=== PATIENT | male | born 1990 | race African-American/Black ===

== ENCOUNTER 2023-12-24 16:40 | Emergency (ER) | payer OTHER ==
[~2023-12-24] VITALS: Ht 185.4 cm; Wt 178.0 kg
[2023-12-24 16:47] VITALS: BP 142/92; PULSE 88; RESP 16; TEMP 98.6; O2SAT 98
== END 2023-12-24 20:39 | disposition home or self-care (01) ==
LOC: ER 16:40
DX: I83.91 Asymptomatic varicose veins of right lower extremity (principal)
CPT/HCPCS: 99283